=== PATIENT | male | born 2000 | race Caucasian/White ===

== ENCOUNTER 2021-03-25 03:10 | Emergency (ER) | payer MEDICAID ==
[~2021-03-25 03:10] MED LIST: OMEPRAZOLE 20MG20 MG PO
[2021-03-25 03:35] LABS: BASOPHIL 0.6 % (0-2); EOSINOPHIL 0.1 % (0-5); HCT 43.8 % (42.0-52.0); HGB 14.5 g/dl (13.2-18.0); MCH 31.6 pg (25.0-31.0); MCHC 33.1 g/dL (32.0-36.0); MCV 95.4 fL (78.0-100.0); MONOCYTE 3.4 % (0-12); MPV 9.1 fL (6.0-9.5); NEUTROPHIL 90.4 % (41-80); NRBC 0; RBC 4.59 M/uL (4.70-6.00); RDW 14.9 % (11.5-14.0); WBC 24.4 K/uL (4.0-10.5)
[2021-03-25 03:38] LABS: PLT 766 K/uL (150-400)
[2021-03-25 03:40] LABS: INR 1.2 (0.9-1.2); PROTHROMBIN TIME 14.6 SECONDS (11.8-13.4); PTT 29.3 SECONDS (24.4-34.7)
[2021-03-25 03:53] LABS: LACTIC ACID 6.2 mmol/L (0.4-1.9)
[2021-03-25 04:06] LABS: ALBUMIN 3.6 g/dL (3.4-5.0); BILIRUBIN - TOTAL 1.1 mg/dL (0.2-1.0); BUN/CREAT RATIO (CALC) 4.3 RATIO; CREATININE 0.7 mg/dL (0.67-1.17); GLOBULIN (CALCULATION) 5.1 g/dL; MAGNESIUM 1.9 mg/dL (1.8-2.4); POTASSIUM 3.9 mmol/L (3.5-5.1); TOTAL PROTEIN 8.7 g/dL (6.4-8.2)
[2021-03-25 04:55] LABS: BILIRUBIN NEGATIVE (NEGATIVE); BLOOD NEGATIVE Ery/uL (NEGATIVE); CLARITY CLEAR (CLEAR); COLOR YELLOW (YELLOW); GLUCOSE (U) NORMAL (NORMAL); LEUKOCYTES NEGATIVE Leu/uL (NEGATIVE); NITRITE NEGATIVE (NEGATIVE); PROTEIN TRACE (LOW) mg/dL (NEGATIVE); SPECIFIC GRAVITY 1.015 (1.001-1.030)
[2021-03-25 05:04] LABS: URINARY WBC RARE
[2021-03-25 05:05] LABS: MUCOUS TRACE
[2021-03-25 05:05] LABS: AMPHETAMINES NEGATIVE (NEGATIVE); BARBITURATES NEGATIVE (NEGATIVE); ECSTASY (MDMA) NEGATIVE (NEGATIVE); MARIJUANA (THC) NEGATIVE (NEGATIVE); METHADONE NEGATIVE (NEGATIVE); OPIATES POSITIVE (NEGATIVE); OXYCODONE NEGATIVE (NEGATIVE)
[2021-03-25 10:01] LABS: BASOPHIL 0.3 % (0-2); EOSINOPHIL 0.3 % (0-5); HCT 37.8 % (42.0-52.0); HGB 11.9 g/dl (13.2-18.0); LYMPHOCYTE 5.6 % (15-48); MCH 30.9 pg (25.0-31.0); MCHC 31.5 g/dL (32.0-36.0); MCV 98.2 fL (78.0-100.0); MONOCYTE 4.8 % (0-12); MPV 9.1 fL (6.0-9.5); NEUTROPHIL 88.2 % (41-80); NRBC 0; PLT 465 K/uL (150-400); RBC 3.85 M/uL (4.70-6.00); RDW 15.1 % (11.5-14.0); WBC 23.1 K/uL (4.0-10.5)
[2021-03-25 10:17] LABS: LACTIC ACID 3.3 mmol/L (0.4-1.9)
[2021-03-25 12:41] LABS: HCT 35.7 % (42.0-52.0); HGB 11.3 g/dL (13.2-18.0)
[2021-03-26 01:31] LABS: HCT 35.4 % (42.0-52.0); HGB 11.1 g/dL (13.2-18.0)
== END 2021-03-26 14:14 | disposition other institution (70) ==
LOC: FER 03:10
PROVIDERS: Emergency Medicine; Internal Medicine
DX: K22.10 Ulcer of esophagus without bleeding (principal); E87.2 Acidosis; K92.2 Gastrointestinal hemorrhage, unspecified; D62 Acute posthemorrhagic anemia; Z20.822 Contact with and (suspected) exposure to COVID-19
CPT/HCPCS: 36415; 71045; 71260; 80053; 80305; 81001; 82271; 83540; 83605; 83690; 83735; 84484; 85014; 85018; 85025; 85610; 85730; 87040; 93005; C9113; G0480; J1170; J2354; J2405; J2543; J2550; J3411; J3475; J7030; Q9967; U0002